=== PATIENT | male | born 1980 | race Caucasian/White ===

== ENCOUNTER 2019-07-26 02:02 | Emergency (ER) | payer SELFPAY ==
[~2019-07-26] VITALS: Ht 172.7 cm; Wt 74.2 kg
[2019-07-26] MEDS ORDERED: CYCLOBENZAPRINE 10 MG TABLET ONE (02:52)
[2019-07-26] MEDS ORDERED: CYCLOBENZAPRINE 10 MG TABLET PO ONE (03:00)
[2019-07-26 03:15] LABS: BASOPHILS # (AUTO) 0.05 x10^3/uL (0-0.1); BASOPHILS % (AUTO) 1 % (0-1); EOSINOPHILS % (AUTO) 4 % (1-7); LYMPHOCYTES # (AUTO) 2.02 x10^3/uL (1-3.4); LYMPHOCYTES % (AUTO) 37 % (22-44); MD NO; MEAN CORPUSCULAR HGB CONC 33.3 g/dL (33.2-36.2); MEAN PLATELET VOLUME 7.8 fL (7.4-10.4); MONOCYTES # (AUTO) 0.64 x10^3/uL (0.2-0.8); MONOCYTES % (AUTO) 12 % (2-9); NEUTROPHILS # (AUTO) 2.51 x10^3/uL (1.8-6.8); NEUTROPHILS % (AUTO) 46 % (42-75); PLATELET COUNT 350 x10^3/uL (130-400); RED BLOOD COUNT 4.82 x10^6/uL (4.38-5.82); RED CELL DISTRIBUTION WIDTH 13.1 % (9.4-14.8)
[2019-07-26 03:27] LABS: ALBUMIN 3.4 g/dL (3.4-5.0); ANION GAP 4 mmol/L (5-15); CALCIUM 8.3 mg/dL (8.5-10.1); CHLORIDE 107 mmol/L (98-107)
[2019-07-26 03:30] LABS: ALANINE AMINOTRANSFERASE 88 U/L (12-78); ALKALINE PHOSPHATASE 110 U/L (45-117); BILIRUBIN,TOTAL 0.3 mg/dL (0.2-1.0); CREATININE 1.05 mg/dL (0.7-1.3); TOTAL PROTEIN 7.3 g/dL (6.4-8.2)
[2019-07-26 04:31] VITALS: BP 117/76
== END 2019-07-26 04:33 | disposition home or self-care (01) ==
LOC: ED 03:09
DX: S22.050A Wedge compression fracture of T5-T6 vertebra, initial encounter for closed fracture (principal); S39.012A Strain of muscle, fascia and tendon of lower back, initial encounter; S29.012A Strain of muscle and tendon of back wall of thorax, initial encounter; R19.7 Diarrhea, unspecified; X58.XXXA Exposure to other specified factors, initial encounter; Y93.89 Activity, other specified; Y92.89 Other specified places as the place of occurrence of the external cause; Y99.8 Other external cause status
CPT/HCPCS: 36415; 72072; 72110; 80053; 83690; 85025; 99284

== ENCOUNTER 2019-08-03 16:50 | Emergency (ER) | payer SELFPAY ==
[~2019-08-03] VITALS: Ht 172.7 cm; Wt 74.6 kg
[2019-08-03] MEDS ORDERED: DEXAMETHASONE 4 MG TABLET PO ONE (17:30)
[2019-08-03] MEDS ORDERED: KETOROLAC 30 MG/1 ML IM ONE (17:30)
[2019-08-03] MEDS ORDERED: KETOROLAC 30 MG/1 ML ONE (18:03)
[2019-08-03] MEDS ORDERED: DEXAMETHASONE 4 MG TABLET ONE (18:03)
[2019-08-03 18:05] LABS: RAPID INFLUENZA A Negative (Negative); RAPID INFLUENZA B Negative (Negative)
[2019-08-03 18:08] VITALS: BP 134/73
== END 2019-08-03 18:40 | disposition home or self-care (01) ==
LOC: ED 18:34
DX: J00 Acute nasopharyngitis [common cold] (principal); B34.9 Viral infection, unspecified; M79.10 Myalgia, unspecified site
CPT/HCPCS: 71046; 87400; 96372; 99284; J1885

== ENCOUNTER 2019-09-03 23:29 | Emergency (ER) | payer SELFPAY ==
[~2019-09-03] VITALS: Ht 172.7 cm; Wt 76.3 kg
[2019-09-03 23:32] VITALS: BP 134/87
[2019-09-04] MEDS ORDERED: CEFTRIAXONE 250 MG IM ONE
[2019-09-04] MEDS ORDERED: AZITHROMYCIN 500 MG TABLET PO ONE
[2019-09-04] MEDS ORDERED: CEFTRIAXONE 250 MG ONE (00:13)
[2019-09-04] MEDS ORDERED: LIDOCAINE-MPF 1%, 5ML ONE (00:14)
[2019-09-04] MEDS ORDERED: AZITHROMYCIN 250 MG TABLET ONE (00:14)
== END 2019-09-04 01:00 | disposition home or self-care (01) ==
LOC: ED 09-04 00:06
DX: A56.01 Chlamydial cystitis and urethritis (principal); A54.9 Gonococcal infection, unspecified; F17.200 Nicotine dependence, unspecified, uncomplicated; Z86.19 Personal history of other infectious and parasitic diseases
CPT/HCPCS: 87491; 87591; 96372; 99283; J0696

== ENCOUNTER 2020-03-12 03:44 | Emergency (ER) | payer SELFPAY ==
[~2020-03-12] VITALS: Ht 172.7 cm; Wt 74.0 kg
[2020-03-12 03:54] VITALS: BP 119/78
[2020-03-12] MEDS ORDERED: CEFTRIAXONE 250 MG ONE (05:15)
[2020-03-12] MEDS ORDERED: AZITHROMYCIN 500 MG TABLET ONE (05:15)
--- NOTE | 2020-03-12 05:28 | NUR ---
seen by ERP. medicated. discharged with instruction. verbalized understanding.
[2020-03-12] MEDS ORDERED: AZITHROMYCIN 500 MG TABLET PO ONE (05:30)
[2020-03-12] MEDS ORDERED: CEFTRIAXONE 250 MG IM ONE (05:30)
== END 2020-03-12 05:31 ==
LOC: ED 05:25
DX: A64 Unspecified sexually transmitted disease (principal)
CPT/HCPCS: 96372; 99283; J0696